=== PATIENT | male | born 1985 | race Caucasian/White ===

== ENCOUNTER 2021-12-24 07:57 | Day surgery (SDC) | payer OTHER ==
[~2021-12-24] VITALS: Ht 188 cm; Wt 80.0 kg
[2021-12-24] VITALS (163 sets, daily range): BP systolic 79–154; BP diastolic 50–105
--- NOTE | 2021-12-24 08:00 | NUR ---
PT ARRIVED TO FLOOR VIA AMBULATORY, ACCOMPAINED BY FAMILY MEMBER. PT A&OX4. NO APPARENT DISTRESS NOTED. CONSENTS OBTAINED. DISCUSS POC AND SAFETY PRECAUTIONS. PT VERBALIZED UNDERSTANDING. ORIENTED TO ROOM AND CALL LIGHT SYSTEM. IV SITE ESTABLISHED #20 RAC X1 ATTEMPT. CALL LIGHT WITHIN REACH. WILL CONTINUE TO MONITOR.
--- NOTE | 2021-12-24 08:08 | NUR ---
DR. BOX NOTIFIED OF VS, NEW ORDERS RECEIVED AT THIS TIME. WILL MEDICATED AND CONTINUE TO MONITOR.
[2021-12-24 08:42] LABS: HEMATOCRIT 41.1 % (39.0-50.0); IMMATURE GRANULOCYTES 0.2 % (0.0-5.0); MEAN CELL VOLUME 87.3 fL CALC (80.0-100.0); MEAN CORPUSCULAR HGB 27.6 pG CALC (26.0-32.0); MEAN CORPUSCULAR HGB CONC 31.6 g/dL CAL (32.0-36.0); NEUT# 2.92 thou/uL (1.82-7.42); RED BLOOD COUNT 4.71 mill/uL (4.70-6.10)
[2021-12-24 08:52] LABS: ALBUMIN 4.2 g/dL (3.2-5.0); ALKALINE PHOSPHATASE 64 u/l (38-126); ANION GAP 9 (6-22 (CALC)); BILIRUBIN, TOTAL 0.2 mg/dL (0.0-1.4); BUN 20 mg/dL (9-20); BUN/CREATININE RATIO 25 (12-20 (CALC)); CARBON DIOXIDE 33 mmol/l (22-30); CHLORIDE 103 mmol/l (95-108); CREATININE 0.8 mg/dL (0.7-1.3); GFR > 60 ML/MIN (>=60 (CALC)); GFR FOR AFR.AMER. > 60 ML/MIN (>=60 (CALC)); SGOT/AST 29 u/l (17-59); SODIUM 140 mmol/l (137-146); TOTAL PROTEIN 7.1 g/dL (6.3-8.2)
--- NOTE | 2021-12-24 10:00 | NUR ---
DR BOX AT BEDSIDE AT THIS TIME
--- NOTE | 2021-12-24 12:50 | NUR ---
Induction Note Patient to [facility] procedure room. Time out performed at 1255. Patient placed on monitors, Gema hugger, bilateral wrist restraints applied for ET tube protection. Versed 5mg given IV push at 1256 Tourniquet applied to RIGHT arm Lidocaine 100mg given at 1257 IV push followed by Rocoronium 10mg at 1257 IV push and held for 90 seconds. Propofol bolus of 120mg given at 1258 IV push. Succinylcholine 80mg given IV push at 1259. Smooth intubation with 7.5 ETT. Positive CO2. Positive Auscultation for air exchange. Patient placed on ventilator for spontaneous ventilation. Placed on Propofol IV drip at 1300. OG inserted. Positive air on auscultation. Positive gastric content. Stomach washed at this time. Naltrexone 75mg given via OG tube with Clonidine 0.2 mg given via OG Tube. OG clamped for 45 minutes. Will monitor patient for symptoms of withdrawal and adjust propfol accordingly.
--- NOTE | 2021-12-24 14:09 | NUR ---
OG open note OG open at this time. Gastric content draining into drainage bag. OG to drain for 45 minutes. Propofol will be titrated down based on patient.
--- NOTE | 2021-12-24 14:54 | NUR ---
OG close note Stomach washed at this time. Naltrexone 50 mg with Clonidine 0.2 mg via OG tube. OG will be clamped for 45 minutes.
--- NOTE | 2021-12-24 16:34 | NUR ---
OG close note Stomach washed at this time. Naltrexone 12.5 mg with Clonidine 0.1 mg via OG tube. OG will be clamped for 45 minutes.
--- NOTE | 2021-12-24 17:45 | NUR ---
OG close note Stomach washed at this time. Clonidine 0.1 mg via OG tube. OG will be clamped AND PREPARE FOR EXTUBATION
--- NOTE | 2021-12-24 18:08 | NUR ---
Extubation note Closing medications given Benadryl 50mg IV push, Decadron 10mg IV push,Magnesium 4 grams IV, Zofran 8mg IV push, Octreotide 100mcg SC. Stomach washed out prior to extubation. Suctioned gastric content. OG removed. Patient extubated. Propofol Discontinued. Wrist restraints removed. Gema hugger Removed. See ANR Moderate sedate recovery record for further notes and assessment.
--- NOTE | 2021-12-24 18:26 | NUR ---
PT BACK TO [facility] VIA BED. PT RESTING IN BED, VSS. CALL LIGHT WITHIN REACH. WILL CONTINUE TO MONITOR.
--- NOTE | 2021-12-24 18:45 | NUR ---
RECEIVED REPORT FROM LAURENT GUILLEN.
--- NOTE | 2021-12-24 20:10 | NUR ---
PT IN BED RESTLESS; A&O X3. EVEN AND UNLABORED RESPIRATIONS; CLEAR LUNG SOUNDS UPON AUSCULTATION. O2 @2L VIA NASAL CANNULA IN PLACE. HYPOACTIVE BOWEL SOUNDS X4 QUADRANTS. SKIN IS INTACT. BOTH IV SITES HEALTHY AND PATENT. PT C/O NAUSEA. PT IS EXTREMELY AGITATED; ADMINISTERED ATIVAN AND PHENERGAN PER EMAR. BED ALARM AND SAFETY PRECAUTIONS IN PLACE. CALL LIGHT WITHIN REACH.
--- NOTE | 2021-12-25 00:15 | NUR ---
PT ASSISTED TO RESTROOM; PT HAD BM. PT BACK TO BED. BED ALARM AND SAFETY PRECAUTIONS IN PLACE. CALL LIGHT WITHIN REACH.
--- NOTE | 2021-12-25 01:56 | NUR ---
BED ALARM WENT ON; PT TRYING TO GET OUT OF BED. PT ASSISTED TO RESTROOM. PT BACK TO BED. INTAKE WORKER EXPLAINED PT THE USE OF CALL LIGHT WHEN ASSISTANCE IS NEEDED; PT SHOWED UNDERSTANDING. BED ALARM AND SAFETY PRECAUTIONS IN PLACE. CALL LIGHT WITHIN REACH.
[2021-12-25 03:40] VITALS: BP 123/71
--- NOTE | 2021-12-25 04:15 | NUR ---
PT ASSISTED TO BATHROOM. PT BACK IN BED. ADMINISTERED SCHEDULED MEDICATIONS. BED ALARM AND SAFETY PRECAUTIONS IN PLACE. CALL LIGHT WITHIN REACH.
[2021-12-25 05:32] LABS: HEMATOCRIT 39.3 % (39.0-50.0); HEMOGLOBIN 12.6 g/dl (14.0-18.0); IMMATURE GRANULOCYTES 0.1 % (0.0-5.0); MEAN CELL VOLUME 84.7 fL CALC (80.0-100.0); MEAN CORPUSCULAR HGB 27.2 pG CALC (26.0-32.0); MEAN CORPUSCULAR HGB CONC 32.1 g/dL CAL (32.0-36.0); NEUT# 7.84 thou/uL (1.82-7.42); RED BLOOD COUNT 4.64 mill/uL (4.70-6.10); RED CELL DISTRI WIDTH 12.9 % (11.5-15.5)
[2021-12-25 05:52] LABS: ALBUMIN 3.9 g/dL (3.2-5.0); ALKALINE PHOSPHATASE 42 u/l (38-126); ANION GAP 13 (6-22 (CALC)); BILIRUBIN, TOTAL 0.6 mg/dL (0.0-1.4); BUN 16 mg/dL (9-20); BUN/CREATININE RATIO 25 (12-20 (CALC)); CARBON DIOXIDE 24 mmol/l (22-30); CHLORIDE 107 mmol/l (95-108); CREATININE 0.6 mg/dL (0.7-1.3); GFR > 60 ML/MIN (>=60 (CALC)); GFR FOR AFR.AMER. > 60 ML/MIN (>=60 (CALC)); MAGNESIUM 2.3 mg/dL (1.6-2.3); POTASSIUM 4.1 mmol/l (3.5-5.1); SGOT/AST 25 u/l (17-59); SODIUM 140 mmol/l (137-146); TOTAL PROTEIN 6.8 g/dL (6.3-8.2)
[2021-12-25 07:33] VITALS: BP 101/56
--- NOTE | 2021-12-25 08:04 | NUR ---
PT RESTING IN LOW FOWLERS POSITION. A/OX2 BUT DROWSY.HEART SOUNDS NORMAL. BOWEL SOUNDS ACTIVE. LUNG SOUNDS CLEAR WITH BREATH SOUNDS EVEN AND UNLABORED. PT ASSISTED TO BATHROOM. PT INSTRUCTED TO USE CALL LIGHT FOR NEEDS. PT VERBALISED UNDERSTANDING. PT DENIES ADDITONAL NEEDS AT THE TIME. ALL SAFTEY PRECAUTIONS IN PLACE. WITH CALL LIGHT IN REACH.
[2021-12-25 08:15] VITALS: BP 101/56
--- NOTE | 2021-12-25 09:08 | NUR ---
DR. BOX AT BEDSIDE
[2021-12-25 10:34] VITALS: BP 109/71
--- NOTE | 2021-12-25 11:52 | NUR ---
PT RESTING IN LOW FOWLERS POSITION. PT ATE LUNCH. PT DENIES OF ANY ADDITIONAL NEEDS AT THE MOMENT . BED ALARM ACTIVE. ALL SAFETY PRECAUTIONS IN PLACE WITH CALL LIGHT IN REACH.
--- NOTE | 2021-12-25 14:53 | NUR ---
PT RESTING IN BED IN LOW FOWLERS POSITION. PT DRESSED SELF AND TRIED TO AMBULATE FROM BED TO COUCH GAIT IS STABLE. IVS REMOVED FROM BOTH ARMS WITH BOTH CATHERTERS INTACT. PT MEDICATED PER EMAR. PT EDUCATED ON DISCHARGE INSTRUCTIONS. PT VERBALLY STATED UNDERSTANDING. PT INSTRUCTED TO USE CALL LIGHT FOR ADDITIONAL NEEDS. PT DENIES OF ADDITIONAL NEEDS AT THE MOMENT. ALL SAFETY PRECAUTIONS IN PLACE WITH CALL LIGHT IN REACH.
--- NOTE | 2021-12-25 15:33 | NUR ---
Discharge instructions given. Patient verbalizes understanding of same. Discharged in stable condition via Wheelchair to Home with staff. All belongings sent with pt.
== END 2021-12-25 15:37 | disposition home or self-care (01) | DRG 897 ==
LOC: MS2 07:57 → ANR 07:57
PROVIDERS: ATTEND Anesthesiology
DX: F11.20 Opioid dependence, uncomplicated (principal)
CPT/HCPCS: J2060; J2354